=== PATIENT | male | born 1940 | race Caucasian/White ===

== ENCOUNTER → 2020-05-11 | Outpatient (CLI) | payer MEDICARE ==
--- NOTE | 2020-05-11 15:10 | REP ---
WHOLE BODY RADIONUCLIDE BONE SCAN: HISTORY: New onset prostate carcinoma. No comparison imaging. TECHNIQUE: 22.0 mCi technetium 99m MDP is injected and standard whole body bone scan images are acquired. SCINTIGRAPHIC FINDINGS: There is an extensive advanced pattern of multifocal increased skeletal uptake in the axial skeleton consistent with widespread skeletal metastatic disease. There is uptake in the urinary bladder which is drained by Betancourt catheter. The left kidney is visible. The right kidney is not well visualized and may be hypo-functioning. Metastatic disease is seen throughout the cervical, thoracic, and lumbar spine as well as the pelvis and sacrum and numerous ribs bilaterally. 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 IMPRESSION: Widespread skeletal metastatic disease pattern. Electronically Signed by Jae Mann MD 05/11/2020 03:18 P
== END ==
LOC: M RAD 10:27
PROVIDERS: ATTEND Specialist
DX: C61 Malignant neoplasm of prostate (principal); R33.9 Retention of urine, unspecified; R97.20 Elevated prostate specific antigen [PSA]
CPT/HCPCS: 78306; A9503

== ENCOUNTER → 2021-05-16 | Outpatient (CLI) | payer MEDICARE ==
--- NOTE | 2021-05-16 17:18 | REPVR ---
PROCEDURE INFORMATION: Exam: CT Maxillofacial Without Contrast, Sinus Exam date and time: 05/16/2021 4:24 PM Age: 81 years old Clinical indication: Other: Nasal polyp TECHNIQUE: Imaging protocol: CT Maxillofacial without contrast. Focus on the sinuses. Radiation optimization: All CT scans at this facility use at least one of these dose optimization techniques: automated exposure control; mA and/or kV adjustment per patient size (includes targeted exams where dose is matched to clinical indication); or iterative reconstruction. COMPARISON: NM Bone Scan Whole Body 05/11/2020 12:29 PM FINDINGS: Frontal sinuses: There is complete opacification of the frontal sinuses. High-density material within the frontal sinus may represent inspissated mucus or superimposed allergic fungal sinusitis. Ethmoid air cells: There is complete opacification of the ethmoid air cells. Sphenoid sinuses: There is complete opacification of the left sphenoid sinus and near complete opacification of the right sphenoid sinus. High-density material within the sphenoid sinus may represent inspissated mucus or superimposed allergic fungal sinusitis. Maxillary sinuses: There is near complete opacification of the right maxillary sinus. Marked mucosal thickening is present in the left maxillary sinus. Nasal cavity/Septum: Multiple polypoid lesions appear to be present within the nasal cavity, likely representing nasal polyposis. Orbital cavity: Orbits are normal. Globes are unremarkable. Bones/joints: Unremarkable. Soft tissues: Unremarkable. IMPRESSION: 1. Pansinusitis 2. Nasal polyposis Electronically signed by: David Devine On 05/16/2021 17:17:49 PM
== END ==
LOC: M RAD 16:15
PROVIDERS: ATTEND Otolaryngology
DX: J33.9 Nasal polyp, unspecified (principal); J01.40 Acute pansinusitis, unspecified

== ENCOUNTER → 2021-07-06 | Outpatient (CLI) | payer MEDICARE ==
[~2021-07-06] MED LIST: ALLO300T2 PO; ATOR1TAB19 PO; B-12100010 PO; CALCTAB62 PO; FISH1000 PO; FLUT1BLS2 INH; FLUTISP; LUPR45IN IM; MAGN400C PO; POTA10808 PO; SAW1CAPS2 PO; SENN-52 PO; TAMS1CAP17 PO; TRIA75TA PO
== END ==
LOC: M LABSMTC 09:16
PROVIDERS: ATTEND Anesthesiology
DX: Z01.818 Encounter for other preprocedural examination (principal); Z11.52 Encounter for screening for COVID-19

== ENCOUNTER → 2021-07-18 | Day surgery (SDC) | payer MEDICARE ==
[~2021-07-18] VITALS: Ht 185.4 cm; Wt 78.0 kg
[~2021-07-18] MED LIST changes: +LR 1,000 ML IV ONE
== END | disposition home or self-care (01) ==
LOC: M SDC 05:30
PROVIDERS: ATTEND Otolaryngology
DX: J32.9 Chronic sinusitis, unspecified (principal); Z53.09 Procedure and treatment not carried out because of other contraindication

== ENCOUNTER → 2022-04-18 | Outpatient (CLI) | payer MEDICARE ==
[~2022-04-18] MED LIST changes: -LR 1,000 ML IV ONE
== END ==
LOC: M RAD 16:14
PROVIDERS: ATTEND Otolaryngology
DX: J33.9 Nasal polyp, unspecified (principal)

== ENCOUNTER → 2022-05-25 | Outpatient (CLI) | payer MEDICARE ==
[~2022-05-25] MED LIST changes: +BICA50TA9 PO; +CVS50CAP PO; +FERR325T3 PO; +OMEP40CA4 PO; +ONE1TAB2 PO; +VITA200020 PO
== END ==
LOC: M LABSMTC 10:59
PROVIDERS: ATTEND Anesthesiology
DX: Z01.818 Encounter for other preprocedural examination (principal); Z11.52 Encounter for screening for COVID-19

== ENCOUNTER 2022-05-30 10:07 | Day surgery (SDC) | payer MEDICARE ==
[~2022-05-30] VITALS: Ht 185.4 cm; Wt 84.0 kg
[2022-05-30] MEDS ORDERED: LR 1,000 ML IV SCH ×2 (10:45→15:45)
[2022-05-30] MEDS ORDERED: LIDOCAINE 2% 100MG/5ML SDV (FOR ANES.) As Ordered ONE (11:40)
[2022-05-30] MEDS ORDERED: fentaNYL 100 MCG/2 ML INJECTION As Ordered ONE (11:41)
[2022-05-30] MEDS ORDERED: ROCURONIUM BROMIDE 50 MG/5 ML VIAL As Ordered ONE (12:42)
[2022-05-30] MEDS ORDERED: LIDOCAINE W/EPINEPHRINE 1% 20ML VIAL As Ordered ONE (12:44)
[2022-05-30] MEDS ORDERED: OXYMETAZOLINE 0.05% NASAL SPRAY (AFRIN) As Ordered ONE ×2 (12:44→14:55)
[2022-05-30] MEDS ORDERED: COCAINE 4% 4ML NASAL SOLUTION BTL As Ordered ONE (12:44)
[2022-05-30] MEDS ORDERED: PHENYLephrine 500MCG 5ML (100MCG/ML) SYRINGE As Ordered ONE (13:34)
[2022-05-30] MEDS ORDERED: ePHEDrine SULFATE 25 MG/5 ML(5MG/ML) SYRINGE As Ordered ONE ×2 (13:34→14:31)
[2022-05-30] MEDS ORDERED: ONDANSETRON 4MG 2ML VIAL As Ordered ONE (13:35)
[2022-05-30] MEDS ORDERED: dexameTHASONE 4 MG/ML 1ML VIAL (J1100 PER 1MG) As Ordered ONE (13:35)
[2022-05-30] MEDS ORDERED: SUGAMMADEX SODIUM 500 MG/5 ML VIAL (BRIDION) As Ordered ONE (13:36)
[2022-05-30] MEDS ORDERED: propofoL 200 MG/20 ML VIAL As Ordered ONE (13:37)
[2022-05-30] MEDS ORDERED: MORPHINE 2 MG/ML 1ML VIAL IV PRN (15:45)
[2022-05-30] MEDS ORDERED: oxyCODONE 5MG TAB PO PRN (15:45)
[2022-05-30] MEDS ORDERED: ONDANSETRON 4MG 2ML VIAL IV PRN ×2 (15:45→16:05)
[2022-05-30] MEDS ORDERED: fentaNYL 100 MCG/2 ML INJECTION IV PRN (15:45)
[2022-05-30 16:00] LABS: HEMATOCRIT 36.1 % (42.0-52.0); HEMOGLOBIN 11.5 g/dl (13.5-17.5)
[2022-05-30] MEDS ORDERED: ANEXSIA, NORCO 7.5MG/325MG TABLET(HYDROCODONE/APAP) PO PRN (16:05)
[2022-05-30 17:00] VITALS: BP 128/77
== END 2022-05-30 17:58 | disposition home or self-care (01) ==
LOC: M SDC 10:07
PROVIDERS: ATTEND Otolaryngology
DX: J32.9 Chronic sinusitis, unspecified (principal); J33.0 Polyp of nasal cavity; I10 Essential (primary) hypertension; J45.909 Unspecified asthma, uncomplicated; J44.9 Chronic obstructive pulmonary disease, unspecified; M10.9 Gout, unspecified; Z85.46 Personal history of malignant neoplasm of prostate; H91.90 Unspecified hearing loss, unspecified ear; Z79.899 Other long term (current) drug therapy; Z79.51 Long term (current) use of inhaled steroids
CPT/HCPCS: 30999; 31259; 31267; 31296; 36415; 61782; 85014; 85018; 88305; C2625; C9046; J1100; J2370; J2405; J3010

== ENCOUNTER 2023-04-30 07:52 | Day surgery (SDC) | payer MEDICARE ==
[~2023-04-30] VITALS: Ht 182.9 cm; Wt 81.2 kg
[~2023-04-30 07:52] MED LIST changes: +ALBU8.5H; +AMLO1TAB24 PO; +CARB10TA6 PO; +CelecoXIB 400 MG CAP PO ONE; +ENZA40TA PO; +FLUT50SP17; -FLUTISP; +IPRA0.00; +POTA4.25 PO; +ceFAZolin SOD 2 GM in IV 1 EA IV ONE
[2023-04-30] MEDS ORDERED: fentaNYL 100 MCG/2 ML INJECTION As Ordered ONE ×2 (08:00→10:51)
[2023-04-30] MEDS ORDERED: SUGAMMADEX SODIUM 500 MG/5 ML VIAL (BRIDION) As Ordered ONE (08:01)
[2023-04-30] MEDS ORDERED: propofoL 200 MG/20 ML VIAL As Ordered ONE (08:01)
[2023-04-30] MEDS ORDERED: ONDANSETRON 4MG 2ML VIAL As Ordered ONE (08:01)
[2023-04-30] MEDS ORDERED: ACETAMINOPHEN 1000MG 100ML IV BAG As Ordered ONE (08:01)
[2023-04-30] MEDS ORDERED: LIDOCAINE 2% 100MG/5ML SDV (FOR ANES.) As Ordered ONE (08:01)
[2023-04-30] MEDS ORDERED: ROCURONIUM BROMIDE 50MG/5ML VIAL As Ordered ONE ×3 (08:03→10:51)
[2023-04-30] MEDS ORDERED: LR 1,000 ML IV SCH ×2 (08:10→12:45)
[2023-04-30] MEDS ORDERED: LIDOCAINE 1% SDV 30ML VIAL As Ordered ONE (09:24)
[2023-04-30] MEDS ORDERED: ONDANSETRON 4MG 2ML VIAL IV PRN (12:45)
[2023-04-30] MEDS ORDERED: fentaNYL 100 MCG/2 ML INJECTION IV PRN (12:45)
[2023-04-30] MEDS ORDERED: HYDROMORPHONE HCL 0.5 MG/ 0.5 ML SYRINGE IV PRN (12:45)
[2023-04-30] MEDS ORDERED: oxyCODONE 5MG TAB PO PRN (12:45)
[2023-04-30] MEDS ORDERED: NORCO, ANEXSIA 5/325MG TABLET (HYDROcodone/ACETAMINOPHEN) PO PRN ×2 (14:30)
[2023-04-30] MEDS ORDERED: KETOROLAC 30 MG/ML 1ML VIAL IV SCH (15:00)
[2023-04-30 15:12] VITALS: BP 120/73; TEMP 98; O2SAT 94
== END 2023-04-30 15:05 | disposition home or self-care (01) ==
LOC: M SDC 07:52
PROVIDERS: ATTEND Surgery
DX: K42.0 Umbilical hernia with obstruction, without gangrene (principal); K66.0 Peritoneal adhesions (postprocedural) (postinfection); M62.08 Separation of muscle (nontraumatic), other site; L72.0 Epidermal cyst; I10 Essential (primary) hypertension; E78.00 Pure hypercholesterolemia, unspecified; M10.9 Gout, unspecified; C61 Malignant neoplasm of prostate; K21.9 Gastro-esophageal reflux disease without esophagitis; D64.9 Anemia, unspecified; M19.90 Unspecified osteoarthritis, unspecified site; R53.1 Weakness; G20 Parkinson's disease; J44.9 Chronic obstructive pulmonary disease, unspecified; Z79.899 Other long term (current) drug therapy; Z79.51 Long term (current) use of inhaled steroids
CPT/HCPCS: 11406; 49594; 88304; C1781; C9290; J0131; J0665; J0690; J1100; J2405; J3010; S2900

== ENCOUNTER → 2025-05-14 | Outpatient (CLI) | payer MEDICARE ==
[~2025-05-14] MED LIST changes: +AZIT500T5 PO; +BICA50TA4 PO; -BICA50TA9 PO; +BUDE10.7 IH; +CARB25TA9 PO; -CelecoXIB 400 MG CAP PO ONE; -FLUT50SP17; +FLUTISP; +HYDR-3719 PO; +HYDR-4517 PO; +IBUP1TAB7 PO; +MELO15TA28 PO; +OXYC-517 PO; -POTA10808 PO; +POTA10809 PO; +SYMB16INH INH; +TRAZ-252 PO; +XTAN40CA PO; -ceFAZolin SOD 2 GM in IV 1 EA IV ONE
[2025-05-14] MEDS: PLUVICTO (LU-177 VIPIVOTIDE TETRAXETAN) 27 MCI/ML VL (CHARGE IS PER MCI) IV STA (15:18)
[2025-05-15] MEDS: PLUVICTO (LU-177 VIPIVOTIDE TETRAXETAN) 27 MCI/ML VL (CHARGE IS PER MCI) IV STA (14:22)
== END ==
LOC: M ONCR 13:41
PROVIDERS: ATTEND General Practice
DX: C61 Malignant neoplasm of prostate (principal); C79.51 Secondary malignant neoplasm of bone
CPT/HCPCS: 36415; 77300; 79101; 84153; A9607

== ENCOUNTER → 2025-05-19 | Outpatient (CLI) | payer MEDICARE ==
[~2025-05-19] VITALS: Ht 185.4 cm; Wt 74.0 kg
[2025-05-19 09:47] VITALS: BP 120/73; O2SAT 93
== END ==
LOC: M PAL 09:16
PROVIDERS: ATTEND Physician Assistant
DX: Z51.5 Encounter for palliative care (principal); Z66 Do not resuscitate; C61 Malignant neoplasm of prostate; C79.51 Secondary malignant neoplasm of bone; G20.C Parkinsonism, unspecified; Z79.891 Long term (current) use of opiate analgesic; M10.00 Idiopathic gout, unspecified site; I10 Essential (primary) hypertension; Z79.899 Other long term (current) drug therapy